=== PATIENT | female | born 1995 | race Caucasian/White ===

== ENCOUNTER 2023-08-17 17:17 | Emergency (ER) | payer OTHER ==
[2023-08-17 17:32] VITALS: BP 140/88; O2SAT 99
[2023-08-17] MEDS ORDERED: CYCLOBENZAPRINE 10 MG TABLET PO STA (17:40)
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
== END 2023-08-17 18:05 | disposition home or self-care (01) ==
LOC: ED 17:17
DX: H93.11 Tinnitus, right ear (principal); V89.2XXA Person injured in unspecified motor-vehicle accident, traffic, initial encounter; Y93.89 Activity, other specified
CPT/HCPCS: 99282; 99283; A9270